=== PATIENT | male | born 1950 | race Caucasian/White ===

== ENCOUNTER 2018-03-07 10:50 | Emergency (ER) | payer MEDICAID, OTHER ==
--- NOTE | 2018-03-07 11:45 | Emergency Department Record ---
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 It feels like it is sleeping. It comes and goes and this started about 5 days ago. Didn't try any meds Onset/Timin -: Days(s) Location: Left, Lower Leg, Thigh History of Same: No Severity scale (1-10): 6 Consistency: Intermittent Improves with: Nothing Worsens with: Nothing Associated Symptoms: Denies other symptoms - Related Data Previous Rx's Medication Instructions Recorded Naproxen [Naprosyn] 500 mg PO BID #30 tablet 03/07/18 Allergies Allergy/AdvReac Type Severity Reaction Status Date / Time No Known Drug Allergies Allergy Verified 03/07/18 11:00 Travel Screening - Travel/Exposure Within Last 30 Days Have you traveled within the last 30 days?: No - Travel/Exposure Within Last Year Have you traveled outside the [place] in the last year?: No - Additonal Travel Details Have you been exposed to anyone with a communicable illness?: No - Travel Symptoms Symptom Screening: None Review of Systems Reviewed: No additional complaints except as noted below Constitutional: Reports: As per HPI. Denies: Chills, Fever, Malaise, Night sweats, Weakness, Weight change Eyes: Reports: As per HPI. Denies: Eye discharge, Eye pain, Photophobia, Vision change ENT: Reports: As per HPI. Denies: Congestion, Dental pain, Ear pain, Epistaxis , Hearing loss, Throat pain Respiratory: Reports: As per HPI. Denies: Cough, Dyspnea, Hemoptysis, Stridor, Wheezes Cardiovascular: Reports: As per HPI. Denies: Arrhythmia, Chest pain, Dyspnea on exertion, Edema, Murmurs, Orthopnea, Palpitations, Paroxysmal nocturnal dyspnea, Rheumatic Fever, Syncope Endocrine: Reports: As per HPI. Denies: Fatigue, Heat or cold intolerance, Polydipsia, Polyuria Gastrointestinal: Reports: As per HPI. Denies: Abdominal pain, Constipation, Diarrhea, Hematemesis, Hematochezia, Melena, Nausea, Vomiting Genitourinary: Reports: As per HPI. Denies: Dysuria, Frequency, Hematuria, Incontinence, Retention, Testicular pain, Testicular mass, Urgency Musculoskeletal: Reports: As per HPI, Back pain (radiculopathy into the left foot). Denies: Arthralgia, Gout, Joint swelling, Myalgia, Neck pain Skin: Reports: As per HPI. Denies: Bruising, Change in color, Change in hair/ nails, Lesions, Pruritus, Rash Neurological: Reports: As per HPI. Denies: Abnormal gait, Confusion, Headache, Numbness, Paresthesias, Seizure, Tingling, Tremors, Vertigo, Weakness Psychiatric: Reports: As per HPI. Denies: Anxiety, Auditory hallucinations, Depression, Homicidal thoughts, Suicidal thoughts, Visual hallucinations Hematological/Lymphatic: Reports: As per HPI. Denies: Anemia, Blood Clots, Easy bleeding, Easy bruising, Swollen glands Past Medical History - SOCIAL HISTORY Smoking Status: Former smoker Alcohol Use: None Drug Use: None - RESPIRATORY Hx Respiratory Disorders: No - CARDIOVASCULAR Hx Cardio Disorders: Yes Hx Heart Attack: Yes (2008) Hx Coronary Stent: Yes (x2 (2009)) - NEURO Hx Neuro Disorders: No - GI Hx GI Disorders: Yes Hx Reflux: Yes (olinda was having sx for hiatal hernia and they hit spleen) Hx Hiatal Hernia: Yes Hx Wt Loss/Wt Gain: Yes (up 10 # from recent adjustments in thyroid meds) - Hx Genitourinary Disorders: No - ENDOCRINE Hx Endocrine Disorders: Yes Hx Thyroid Disease: Yes Comment:: recently adjustment of med - MUSCULOSKELETAL Hx Musculoskeletal Disorders: Yes Hx Arthritis: Yes (lf knee) - PSYCH Hx Psych Problems: No - HEMATOLOGY/ONCOLOGY Hx Hematology/Oncology Disorders: Yes Hx Cancer: Yes (skin) Family Medical History Any Significant Family History?: Yes Hx Cancer: Father, Mother Physical Exam - General General Appearance: Alert, Oriented x3, Cooperative, No acute distress - Head Head exam: Normal inspection - Eye Eye exam: Normal appearance, PERRL Pupils: Normal accommodation - ENT ENT exam: Normal exam, Mucous membranes moist, Normal external ear exam, Normal orophraynx, TM's normal bilaterally Ear exam: Normal external inspection. negative: External canal tenderness Nasal Exam: Normal inspection. negative: Discharge, Sinus tenderness Mouth exam: Normal external inspection, Tongue normal Teeth exam: Normal inspection. negative: Dental caries Throat exam: Normal inspection. negative: Tonsillar erythema, Tonsillar exudate - Neck Neck exam: Normal inspection, Full ROM. negative: Tenderness - Respiratory Respiratory exam: Normal lung sounds bilaterally. negative: Respiratory distress - Cardiovascular Cardiovascular Exam: Regular rate, Normal rhythm, Normal heart sounds - GI/Abdominal GI/Abdominal exam: Soft, Normal bowel sounds. negative: Tenderness - Rectal Rectal exam: Deferred - exam: Deferred - Extremities Extremities exam: Normal inspection, Full ROM, Normal capillary refill, Tenderness (medial left thigh pain) - Back Back exam: Reports: Normal inspection, Full ROM. Denies: Muscle spasm, Rash noted, Tenderness - Neurological Neurological exam: Alert, Normal gait, Oriented X3, Reflexes normal - Psychiatric Psychiatric exam: Normal affect, Normal mood - Skin Skin exam: Dry, Intact, Normal color, Warm Course Vital Signs 03/07/18 11:03 Temperature 97.8 F Pulse Rate 78 Respiratory 20 Rate Blood Pressure 149/90 Pulse Ox 98 Medical Decision Making - Data Complexity MDM Data: X-Ray Ordered and/or Reviewed (Venous dopler neg for DVT), EKG Ordered and/or Reviewed (NSR, no acute changes) Disposition Clinical Impression: Radiculopathy, lumbosacral region Disposition: Home, Self-Care Condition: (1) Good Instructions: Lumbar Radiculopathy (ED) Additional Instructions: follow up with family in one week Prescriptions: Naproxen [Naprosyn] 500 mg PO BID #30 tablet Forms: Patient Portal Access Time of Disposition: 13:36 Quality - Quality Measures Quality Measures: N/A - Blood Pressure Screening Does Patient Have Any of the Following: No Blood Pressure Classification: Hypertensive Reading Systolic Measurement: 149 Diastolic Measurement: 90 Screening for High Blood Pressure: < Pre-Hypertensive BP, F/U Documented > [ G8950] Pre-Hypertensive Follow-up Interventions: Referral to alternative/primary care provider.
--- NOTE | 2018-03-09 07:45 | US VENOUS DOPPLER REPORT ---
EXAM: EMERGENCY VENOUS DOPPLER ULTRASOUND OF THE LEFT LOWER EXTREMITY HISTORY: LEFT THIGH PAIN AND NUMBNESS FOR FIVE DAYS, POSSIBLE DVT. TECHNIQUE: Venous Doppler ultrasound of the left lower extremity was performed utilizing color flow and spectral analysis. Compression and flow augmentation maneuvers were utilized in the thigh and popliteal region. Comparison: No prior venous Doppler ultrasound with which to compare. FINDINGS: The venous Doppler ultrasound of the left lower extremity appears negative. No definite DVT identified with flow seen throughout. Compression and flow augmentation evident in the thigh and popliteal region as well. IMPRESSION: NEGATIVE VENOUS DOPPLER ULTRASOUND OF THE LEFT LOWER EXTREMITY. JOB NUMBER: [id number] [facility]
== END 2018-03-07 14:08 | disposition home or self-care (01) ==
LOC: ER 10:50
DX: M54.17 Radiculopathy, lumbosacral region (principal); M79.652 Pain in left thigh; R42 Dizziness and giddiness; I25.2 Old myocardial infarction; Z87.891 Personal history of nicotine dependence
CPT/HCPCS: 93005; 93010; 99284

== ENCOUNTER 2019-04-21 12:37 | Emergency (ER) | payer OTHER ==
--- NOTE | 2019-04-21 13:04 | Emergency Department Record ---
History of Present Illness - General Chief Complaint: Dizziness Stated Complaint: DIZZY,WEAK/ HISTORY OF HEART ATTACK Time Seen by Provider: 04/21/19 13:02 Source: Patient, RN notes reviewed Mode of Arrival: Ambulatory - History of Present Illness Initial Comments: weakness and fatigue for 2 weeks and previous [place] 2009 TCI and now with a [facility] . Patient denies SOB and he has PAD with only able to walk one hundred yards and has to rest his legs. His last cardiac stress test was a cardiolyte stress because he could not walk and that was good one year ago. Patient had stopped his thyroid medication a while ago and his TSH is high(40- 80) and he restarted his thyroid 10 days ago at 100mcg per day. Started on a zpak by his Dr one day ago. Onset/Timin -: Week(s) Timing: Gradual onset Description: Difficulty walking, Lightheadedness, Off-balance Severity: Moderate Improves With: Nothing Worsens With: Nothing - Bruna Coma Scale Eye Response: (4) Open spontaneously Motor Response: (6) Obeys commands Verbal Response: (5) Oriented Bruna Total: 15 - Symptoms of Stroke Symptoms of stroke: Dizziness - Related Data Previous Rx's Medication Instructions Recorded Naproxen [Naprosyn] 500 mg PO BID #30 tablet 03/07/18 Allergies Allergy/AdvReac Type Severity Reaction Status Date / Time No Known Drug Allergies Allergy Verified 04/21/19 12:50 Travel Screening - Travel/Exposure Within Last 30 Days Have you traveled within the last 30 days?: No - Travel/Exposure Within Last Year Have you traveled outside the [place] in the last year?: No - Additonal Travel Details Have you been exposed to anyone with a communicable illness?: No - Travel Symptoms Symptom Screening: None Review of Systems Reviewed: No additional complaints except as noted below Constitutional: Reports: As per HPI. Denies: Chills, Fever, Malaise, Night sweats, Weakness, Weight change Eyes: Reports: As per HPI. Denies: Eye discharge, Eye pain, Photophobia, Vision change ENT: Reports: As per HPI. Denies: Congestion, Dental pain, Ear pain, Epistaxis, Hearing loss, Throat pain Respiratory: Reports: As per HPI. Denies: Cough, Dyspnea, Hemoptysis, Stridor, Wheezes Cardiovascular: Reports: As per HPI. Denies: Arrhythmia, Chest pain, Dyspnea on exertion, Edema, Murmurs, Orthopnea, Palpitations, Paroxysmal nocturnal dyspnea, Rheumatic Fever, Syncope Endocrine: Reports: As per HPI. Denies: Fatigue, Heat or cold intolerance, Polydipsia, Polyuria Gastrointestinal: Reports: As per HPI. Denies: Abdominal pain, Constipation, Diarrhea, Hematemesis, Hematochezia, Melena, Nausea, Vomiting Genitourinary: Reports: As per HPI. Denies: Dysuria, Frequency, Hematuria, Incontinence, Retention, Testicular pain, Testicular mass, Urgency Musculoskeletal: Reports: As per HPI. Denies: Arthralgia, Back pain, Gout, Joint swelling, Myalgia, Neck pain Skin: Reports: As per HPI. Denies: Bruising, Change in color, Change in hair/nails, Lesions, Pruritus, Rash Neurological: Reports: As per HPI. Denies: Abnormal gait, Confusion, Headache, Numbness, Paresthesias, Seizure, Tingling, Tremors, Vertigo, Weakness Psychiatric: Reports: As per HPI. Denies: Anxiety, Auditory hallucinations, Depression, Homicidal thoughts, Suicidal thoughts, Visual hallucinations Hematological/Lymphatic: Reports: As per HPI. Denies: Anemia, Blood Clots, Easy bleeding, Easy bruising, Swollen glands Past Medical History - SOCIAL HISTORY Smoking Status: Former smoker Alcohol Use: None Drug Use: None - RESPIRATORY Hx Respiratory Disorders: No - CARDIOVASCULAR Hx Cardio Disorders: Yes Hx Cardiac Cath: Yes Hx Heart Attack: Yes (2008) Hx Coronary Stent: Yes (x2 (2009)) - NEURO Hx Neuro Disorders: No - GI Hx GI Disorders: Yes Hx Reflux: Yes (olinda was having sx for hiatal hernia and they hit spleen) Hx Hiatal Hernia: Yes Hx Wt Loss/Wt Gain: Yes (up 10 # from recent adjustments in thyroid meds) - Hx Genitourinary Disorders: No - ENDOCRINE Hx Endocrine Disorders: Yes Hx Thyroid Disease: Yes Comment:: recently adjustment of med - MUSCULOSKELETAL Hx Musculoskeletal Disorders: Yes Hx Arthritis: Yes (lf knee) - PSYCH Hx Psych Problems: No - HEMATOLOGY/ONCOLOGY Hx Hematology/Oncology Disorders: Yes Hx Cancer: Yes (skin) Family Medical History Any Significant Family History?: Yes Hx Cancer: Father, Mother Physical Exam - General General Appearance: Alert, Oriented x3, Cooperative, No acute distress - Head Head exam: Normal inspection - Eye Eye exam: Normal appearance, PERRL Pupils: Normal accommodation - ENT ENT exam: Normal exam, Mucous membranes moist, Normal external ear exam, Normal orophraynx, TM's normal bilaterally Ear exam: Normal external inspection. negative: External canal tenderness Nasal Exam: Normal inspection. negative: Discharge, Sinus tenderness Mouth exam: Normal external inspection, Tongue normal Teeth exam: Normal inspection. negative: Dental caries Throat exam: Normal inspection. negative: Tonsillar erythema, Tonsillar exudate - Neck Neck exam: Normal inspection, Full ROM. negative: Tenderness - Respiratory Respiratory exam: Normal lung sounds bilaterally. negative: Respiratory distress - Cardiovascular Cardiovascular Exam: Regular rate, Normal rhythm, Normal heart sounds - GI/Abdominal GI/Abdominal exam: Soft, Normal bowel sounds. negative: Tenderness - Rectal Rectal exam: Deferred - exam: Deferred - Extremities Extremities exam: Normal inspection, Full ROM, Normal capillary refill. negative: Tenderness - Back Back exam: Reports: Normal inspection, Full ROM. Denies: Muscle spasm, Rash noted, Tenderness - Neurological Neurological exam: Alert, Normal gait, Oriented X3, Reflexes normal - Psychiatric Psychiatric exam: Normal affect, Normal mood - Skin Skin exam: Dry, Intact, Normal color, Warm Course Vital Signs 04/21/19 12:42 Temperature 98.1 F Pulse Rate 69 Respiratory 20 Rate Blood Pressure 120/75 Pulse Ox 97 Medical Decision Making - Data Complexity MDM Data: Labs Ordered and/or Reviewed (TSH 30), EKG Ordered and/or Reviewed (NSR ,no acute changes and one PVC) - Lab Data Result diagrams: 04/21/19 12:47 04/21/19 12:47 Disposition Clinical Impression: Weakness Hypothyroidism Qualifiers: Hypothyroidism type: acquired Qualified Code(s): E03.9 - Hypothyroidism, unspecified Disposition: Home, Self-Care Condition: (1) Good Instructions: Hypothyroidism (ED) Additional Instructions: follow up with family in 1 week continue thyroid medication Forms: Patient Portal Access Time of Disposition: 14:49 Quality - Quality Measures Quality Measures: N/A - Blood Pressure Screening Does Patient Have Any of the Following: No Blood Pressure Classification: Pre-Hypertensive BP Reading Systolic Measurement: 120 Diastolic Measurement: 75 Screening for High Blood Pressure: < Pre-Hypertensive BP, F/U Documented > [G8950] Pre-Hypertensive Follow-up Interventions: Referral to alternative/primary care provider.
[2019-04-21] MEDS ORDERED: ASPIRIN 81 MG CHEWABLE TABLET PO ONE (13:15)
[2019-04-21 13:29] LABS: ABSOLUTE NEUTROPHIL COUNT 4.76; BASO % 1.2 % (0-6); EOS % 4.2 % (0-6); GRAN % 53.4 % (47-80); HEMATOCRIT 45.2 % (42.0-52.0); HEMOGLOBIN 15.2 gm/dl (14.0-18.0); LYMPH % 29.6 % (16-45); MEAN CELL VOLUME 94.4 fl (81-97); MEAN CORPUSCULAR HEMOGLOBIN 31.7 pg (27-33); MEAN CORPUSCULAR HGB CONC 33.6 g/dl (32-36); MEAN PLATELET VOLUME 11.2 fl (7.4-10.4); MONO % 11.6 % (0-9); PLATELET COUNT 296 K/uL (130-400); RED BLOOD COUNT 4.79 M/uL (4.40-5.70); RED CELL DISTRIBUTION WIDTH 15.8 % (11.5-14.5); WHITE BLOOD COUNT W/O DIFF 8.9 K/uL (4.2-12.2)
[2019-04-21 13:41] LABS: BLOOD UREA NITROGEN 22 mg/dL (8-23); CREATININE 1.4 mg/dL (0.7-1.2); EST GLOMERULAR FILTRATION RATE 54 mL/min
[2019-04-21 13:42] LABS: URINE APPEARANCE CLEAR; URINE BILIRUBIN NEGATIVE (NEGATIVE); URINE BLOOD SMALL (NEGATIVE); URINE COLOR YELLOW; URINE GLUCOSE (UA) NEGATIVE (NEGATIVE); URINE KETONE NEGATIVE (NEGATIVE); URINE LEUKOCYTE ESTERASE NEGATIVE (NEGATIVE); URINE NITRITE NEGATIVE (NEGATIVE); URINE PROTEIN NEGATIVE (NEGATIVE); URINE UROBILINOGEN 0.2 E.U./dL (0.20 - 1.00)
[2019-04-21 13:44] LABS: GLUCOSE,RANDOM 69 mg/dL (74-109)
[2019-04-21 13:53] LABS: URINE EPITHELIAL CELLS 0 - 2 (FEW); URINE WBC 0 - 2 (0-2/hpf)
[2019-04-21 13:57] LABS: THYROID STIMULATING HORMONE 30.66 uIU/mL (0.270-4.20)
== END 2019-04-21 15:00 | disposition home or self-care (01) ==
LOC: ER 12:37
DX: R53.1 Weakness (principal); E03.9 Hypothyroidism, unspecified; R42 Dizziness and giddiness; R26.2 Difficulty in walking, not elsewhere classified; I25.2 Old myocardial infarction; Z87.891 Personal history of nicotine dependence
CPT/HCPCS: 80048; 81001; 84443; 84484; 85025; 85730; 99284